=== PATIENT | male | born 1960 | race Caucasian/White ===

== ENCOUNTER 2020-11-18 12:01 | Emergency (ER) | payer OTHER, SELFPAY ==
--- NOTE | ~2020-11-18 | XR_ITS ---
EXAMINATION: XR ribs LT 2V w CXR 2V INDICATION: Left chest pain TECHNIQUE: Frontal and lateral views of the chest and 3 views of the left ribs were obtained. COMPARISON: None. FINDINGS: The lungs are free of acute opacities. There is no pleural effusion or pneumothorax. The ca rdiomediastinal silhouette is normal. There is mild irregularity at the anterolateral aspect of the l eft sixth rib. IMPRESSION: 1. No acute cardiopulmonary abnormality. 2. Possible nondisplaced left sixth rib fracture. 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
[2020-11-18 12:08] VITALS: BP 150/85; PULSE 92; RESP 16; TEMP 38; O2SAT 100
--- NOTE | 2020-11-18 12:23 | ED.GENADULT ---
HPI - General Adult General Chief complaint: Wound/Laceration Stated complaint: possible rib injury Time Seen by Provider: 11/18/20 12:23 Source: patient and RN notes reviewed Mode of arrival: ambulatory Limitations: no limitations History of Present Illness HPI narrative: 60-year-old male presents with concern for left rib pain under the axillary area. Reports last night having too much alcohol to drink, he fell hitting the lateral aspect of his ribs on a wooden stair. Reports he does not remember if he had pain last night. Reports he woke up this morning with pain, reports pain is exacerbated by deep breathing, moving from a sitting to standing to lying position. Denies difficulty breathing, shortness of breath. MD complaint: Rib pain Related Data Allergies Allergy/AdvReac Type Severity Reaction Status Date / Time No Known Allergies Allergy Verified 11/18/20 12:24 Review of Systems Review of Systems: Narrative: CONSTITUTIONAL: Denies malaise, chills, sweats, or fever. CARDIOVASCULAR: Denies chest pain, palpitations, or edema. RESPIRATORY: Denies cough or dyspnea. GASTROINTESTINAL: Denies abdominal pain, nausea, vomiting, diarrhea GENITOURINARY: Denies dysuria or hematuria. SKIN: Denies bruising or redness MUSCULOSKELETAL: Reports left rib pain NEUROLOGIC: Denies numbness, weakness, or headache. All systems reviewed & are unremarkable except as noted in HPI and below PMFSH Comments At time of signature, agree with nursing past medical, surgical, social and family history. There is no relevant family history pertinent to the presenting complaint Exam Narrative: Exam Narrative: GENERAL: Well-appearing, well-nourished, and in no acute distress. HEAD: Normocephalic, atraumatic. EYES: PERRLA, conjunctivae clear ENT: Mucous membranes moist. NECK: Supple. CHEST: No respiratory distress. Clear to auscultation. No bony deformities, no asymmetry. Speaks in full sentences. HEART: Regular rate and rhythm. No murmur heard. EXTREMITIES: Normal range of motion. No edema. Normal strength and sensation. Left lateral chest tenderness SKIN: Warm, dry, no rash. No chest wall ecchymosis. NEURO: Alert and oriented x3. PSYCH: Normal mood and affect Course Course Emergency Course: Patient is aware of diagnosis, understands and agrees to treatment plan. Anticipatory guidance given. Patient agrees to follow-up as directed and is aware of reasons to seek care at the emergency department. Portions of this record may have been created with voice recognition software Vital Signs Vital signs: Vital Signs Temperature 100.4 F H 11/18/20 12:08 Pulse Rate 92 11/18/20 12:08 Respiratory Rate 16 11/18/20 12:08 Blood Pressure 150/85 H 11/18/20 12:08 Pulse Oximetry 100 11/18/20 12:08 Temperature 100.4 F H 11/18/20 12:08 Pulse Rate 92 11/18/20 12:08 Respiratory Rate 16 11/18/20 12:08 Blood Pressure 150/85 H 11/18/20 12:08 Pulse Oximetry 100 11/18/20 12:08 Reviewed. Pt has been instructed to follow up with his primary care provider within the next week regarding his elevated blood pressure today. Medical Decision Making MDM Narrative Medical decision making narrative: Patients injury and pain is consistent with musculoskeletal etiology. No signs of neurological or vascular compromise on exam. Compartments and tissues are soft without signs of compartment syndrome. Pain is felt appropriate for further evaluation on an outpatient basis. Vital Signs Vital Signs: Vital Signs Temperature 100.4 F H 11/18/20 12:08 Pulse Rate 92 11/18/20 12:08 Respiratory Rate 16 11/18/20 12:08 Blood Pressure 150/85 H 11/18/20 12:08 Pulse Oximetry 100 11/18/20 12:08 Temperature 100.4 F H 11/18/20 12:08 Pulse Rate 92 11/18/20 12:08 Respiratory Rate 16 11/18/20 12:08 Blood Pressure 150/85 H 11/18/20 12:08 Pulse Oximetry 100 11/18/20 12:08 Imaging Data My impression: Images reviewed, interpreted by
== END 2020-11-18 13:00 | disposition home or self-care (01) ==
PROVIDERS: Emergency Provider Nurse Practitioner
DX: S22.32XA Fracture of one rib, left side, initial encounter for closed fracture (principal); W19.XXXA Unspecified fall, initial encounter
CPT/HCPCS: 71046; 71100; 99213; G0463